=== PATIENT | female | born 1930 | race Caucasian/White ===

== ENCOUNTER 2016-12-15 12:44 | Emergency (ER) | payer OTHER ==
[~2016-12-15] VITALS: Ht 165.1 cm; Wt 88.6 kg
[~2016-12-15 12:44] MED LIST: AMLODIPINE BESY10 MG PO; ASPIRIN325 MG PO; ATIVAN0.5 MG PO; AUGMENTIN875 MG PO; CENTRUM SILVER1 EAC3 PO; CITALOPRAM HBR10 M1 PO; CITALOPRAM HBR10 MG PO; COLACE100 MG PO; DICYCLOMINE HCL10 MG PO; DUONEB 2.5-0.5 M3 ML AEROSOL; ENALAPRIL MALEA20 M1 NG; ENALAPRIL MALEA20 MG PO; FUROSEMIDE40 MG PO; GABAPENTIN100 MG PO; LEVSIN-SL0.125 MG SL; MESTINON180 MG PO; MESTINON60 MG PO; METAMUCIL; METAMUCIL PACKE1 PKT PO; METFORMIN HCL500 MG PO; MORPHINE CON20 MG/M1 SL; PERCOCET 5/31 TABLET PO; PYRIDOSTIGMINE60 MG PO; SIMVASTATIN20 M1 PO; SIMVASTATIN20 MG PO; VICODIN,LORT1 TABLET PO; VITAMIN B12-FO1 EACH PO; VITAMIN B6100 MG PO; VITAMIN D3400 UNIT PO; VITAMIN D50000 UNI2 PO
[2016-12-15 13:36] LABS: HEMATOCRIT 36.2 % (36.0-46.0); MCH 28.7 PG (29.0-34.0); MCHC 32.9 G/DL (30.0-36.0); MCV 87.2 FL (83-99); MEAN PLAT.VOLUME 10.4 uM^3 (9.5-12.4); PLATELET COUNT 246 K/uL (156-360); RBC DIS.WIDTH-CV 14.7 % (11.8-14.6); RBC DIS.WIDTH-SD 47.4 % (39-53); RED BLOOD COUNT 4.15 M/uL (3.80-5.20); WHITE BLOOD COUNT 9.7 K/uL (4.1-10.2)
[2016-12-15 13:44] LABS: CHLORIDE 106 mEq/L (99-109); POTASSIUM 4.8 mEq/L (3.7-5.4); SODIUM 140 mEq/L (136-147)
[2016-12-15 13:47] LABS: GLUCOSE 149 mg/dL (70-99)
[2016-12-15 13:48] LABS: ANION GAP 8 MEQ/L (2-14)
[2016-12-15 13:49] LABS: TOTAL BILIRUBIN 0.8 mg/dL (0.0-1.0)
[2016-12-15 13:50] LABS: ALKALINE PHOSPHATASE 151 IU/L (3-129); GFR ESTIMATE (CALCULATED) > 59 mL/min/
[2016-12-15 13:51] LABS: UREA NITROGEN (BUN) 15 mg/dL (9-23)
[2016-12-15 13:53] LABS: CREATINE KINASE 39 IU/L (1-294); TOTAL CK 39 IU/L (1-294)
[2016-12-15 13:56] LABS: TROP-I INTERPRETATION NEGATIVE; TROPONIN-I < 0.01 ng/mL (0.0-0.30)
[2016-12-15 13:59] LABS: CK-MB 1.2 ng/mL (0.0-4.9)
[2016-12-15 16:47] VITALS: BP 162/75
== END 2016-12-15 17:01 | disposition home or self-care (01) ==
LOC: EME 12:44
PROVIDERS: Emergency Medicine
DX: K80.20 Calculus of gallbladder without cholecystitis without obstruction (principal); I10 Essential (primary) hypertension; E78.5 Hyperlipidemia, unspecified; G70.00 Myasthenia gravis without (acute) exacerbation; Z79.82 Long term (current) use of aspirin
CPT/HCPCS: 71010; 76705; 80053; 82550; 82553; 84484; 85027; 93005; 99281; 99284; J1885; J2405

== ENCOUNTER 2017-05-23 12:50 | Inpatient (IN) | payer OTHER ==
[~2017-05-23] VITALS: Ht 162.6 cm; Wt 84.2 kg
[2017-05-23 13:34] LABS: BASOPHIL (%) 0.3 % (0-1); EOSINOPHIL (%) 1.5 % (0-5); EOSINOPHIL COUNT 0.2 K/uL (0-0.3); HEMATOCRIT 38.8 % (36.0-46.0); HEMOGLOBIN 12.6 G/DL (11.9-15.5); IMMATURE GRANULOCYTE (%) 0.2 % (0.0-0.7); LYMPHOCYTE (%) 31.2 % (15-42); LYMPHOCYTE COUNT 3.1 K/uL (1.0-2.8); MCH 27.8 PG (29.0-34.0); MCHC 32.5 G/DL (30.0-36.0); MCV 85.5 FL (83-99); MONOCYTE (%) 6.4 % (3-12); MONOCYTE COUNT 0.6 K/uL (0-0.8); NEUTROPHIL (%) 60.4 % (45-76); PLATELET COUNT 297 K/uL (156-360); RBC DIS.WIDTH-CV 15.9 % (11.8-14.6); RBC DIS.WIDTH-SD 49.5 % (39-53); RED BLOOD COUNT 4.54 M/uL (3.80-5.20); WHITE BLOOD COUNT 9.9 K/uL (4.1-10.2)
[2017-05-23 13:45] LABS: ALBUMIN 3.9 g/dL (3.2-4.8); CHLORIDE 107 mEq/L (99-109); POTASSIUM 4.9 mEq/L (3.7-5.4); SODIUM 144 mEq/L (136-147)
[2017-05-23 13:47] LABS: GLUCOSE 135 mg/dL (70-99)
[2017-05-23 13:48] LABS: TOTAL PROTEIN 7.9 g/dL (6.4-8.3)
[2017-05-23 13:49] LABS: TOTAL BILIRUBIN 0.5 mg/dL (0.0-1.0)
[2017-05-23 13:51] LABS: ALKALINE PHOSPHATASE 94 IU/L (3-129); GFR ESTIMATE (CALCULATED) 56 mL/min/
[2017-05-23 13:52] LABS: UREA NITROGEN (BUN) 17 mg/dL (9-23)
[2017-05-23 13:53] LABS: AST (GOT) 22 IU/L (2-34)
[2017-05-23 13:54] LABS: ALT (GPT) 17 IU/L (3-49)
[2017-05-23] MEDS ORDERED: FUROSEMIDE20 MG PO (17:19)
[2017-05-23] MEDS ORDERED: AMLODIPINE-BEN1 EACH PO (17:20)
[2017-05-23] MEDS ORDERED: MELATONIN5 M1 PO (17:21)
[2017-05-23] MEDS ORDERED: METAMUCIL0.4 GM PO (17:22)
[2017-05-23 19:10] LABS: APPEARANCE SL.HAZY ((CLEAR)); BILIRUBIN NEGATIVE; BLOOD SMALL; COLOR YELLOW ((YELLOW)); GLUCOSE (STRIP) NEGATIVE; KETONES NEGATIVE; LEUKOCYTES TRACE; NITRITE POSITIVE; PROTEIN (STRIP) NEGATIVE; SPECIFIC GRAVITY 1.012 (1.000-1.030); UROBILINOGEN 0.2 MG/DL (0.2-1.0)
[2017-05-23 19:17] LABS: BACTERIA 3+ /HPF; EPITHELIAL CELLS 1+ /HPF; HYALINE CASTS 0-5 /LPF; MUCUS TRACE /LPF; RED BLOOD CELLS 0-5 /HPF (0-5); UCUL ADDED? YES
[2017-05-24 12:20] VITALS: BP 178/80
[2017-05-24 14:29] VITALS: BP 142/78
[2017-05-24 17:00] VITALS: BP 162/70
[2017-05-24 19:35] VITALS: BP 147/70
[2017-05-24 23:32] VITALS: BP 145/79
[2017-05-25 03:40] VITALS: BP 143/94
[2017-05-25 07:00] VITALS: BP 143/68
[2017-05-25 12:08] VITALS: BP 150/72
[2017-05-25 15:00] VITALS: BP 148/66
[2017-05-25 19:52] VITALS: BP 166/70
[2017-05-25 23:51] VITALS: BP 166/72
[2017-05-26 08:18] VITALS: BP 140/68
[2017-05-26] MEDS ORDERED: MESTINON60 MG PO (08:22)
[2017-05-26] MEDS ORDERED: CEFTIN250 MG PO (08:22)
== END 2017-05-26 10:03 | disposition home or self-care (01) | DRG 57 ==
LOC: EME 12:50 → 2EAST 19:18 → EDOF 19:18 → ENRESERV 19:19 → 2EAST 05-24 12:12
PROVIDERS: Emergency Medicine; Hospitalist; Internal Medicine
DX: G70.01 Myasthenia gravis with (acute) exacerbation (principal); N30.00 Acute cystitis without hematuria; I10 Essential (primary) hypertension; E11.9 Type 2 diabetes mellitus without complications; E78.5 Hyperlipidemia, unspecified; E66.3 Overweight; M19.90 Unspecified osteoarthritis, unspecified site; Z68.31 Body mass index [BMI] 31.0-31.9, adult; R13.10 Dysphagia, unspecified; M43.6 Torticollis; Z66 Do not resuscitate; E87.70 Fluid overload, unspecified; K59.00 Constipation, unspecified; B96.20 Unspecified Escherichia coli [E. coli] as the cause of diseases classified elsewhere; I45.9 Conduction disorder, unspecified; K21.9 Gastro-esophageal reflux disease without esophagitis; Z90.710 Acquired absence of both cervix and uterus; Z79.82 Long term (current) use of aspirin; Z98.41 Cataract extraction status, right eye; Z98.42 Cataract extraction status, left eye
CPT/HCPCS: 71046; 80053; 81003; 82948; 85025; 87077; 87086; 87186; 93005; 99281; 99285; J0696; J1100; J1566; J1644; J1815; J7030

== ENCOUNTER 2017-06-10 22:30 | Inpatient (IN) | payer OTHER ==
[~2017-06-10] VITALS: Ht 167.6 cm; Wt 88.5 kg
[~2017-06-10 22:30] MED LIST changes: +AMLODIPINE-BEN1 EACH PO; +CEFTIN250 MG PO; +FUROSEMIDE20 MG PO; +MELATONIN5 M1 PO; +METAMUCIL0.4 GM PO
[2017-06-10 23:08] LABS: HEMATOCRIT 37.2 % (36.0-46.0); HEMOGLOBIN 12.2 G/DL (11.9-15.5); MCH 27.7 PG (29.0-34.0); MCHC 32.8 G/DL (30.0-36.0); MCV 84.5 FL (83-99); PLATELET COUNT 341 K/uL (156-360); RBC DIS.WIDTH-CV 15.7 % (11.8-14.6); WHITE BLOOD COUNT 9.6 K/uL (4.1-10.2)
[2017-06-10 23:21] LABS: ALBUMIN 3.6 g/dL (3.2-4.8); CHLORIDE 103 mEq/L (99-109); POTASSIUM 3.6 mEq/L (3.7-5.4); SODIUM 140 mEq/L (136-147)
[2017-06-10 23:24] LABS: GLUCOSE 161 mg/dL (70-99); TOTAL PROTEIN 7.6 g/dL (6.4-8.3)
[2017-06-10 23:26] LABS: TOTAL BILIRUBIN 0.3 mg/dL (0.0-1.0)
[2017-06-10 23:27] LABS: ALKALINE PHOSPHATASE 115 IU/L (3-129); CREATININE 0.8 mg/dL (0.6-1.3); GFR ESTIMATE (CALCULATED) > 59 mL/min/
[2017-06-10 23:28] LABS: UREA NITROGEN (BUN) 10 mg/dL (9-23)
[2017-06-10 23:29] LABS: AST (GOT) 32 IU/L (2-34)
[2017-06-10 23:30] LABS: ALT (GPT) 22 IU/L (3-49)
[2017-06-10 23:31] LABS: LIPASE 13 U/L (1.0-51.0)
[2017-06-11 00:40] LABS: APPEARANCE SL.HAZY ((CLEAR)); BILIRUBIN NEGATIVE; BLOOD SMALL; COLOR YELLOW ((YELLOW)); GLUCOSE (STRIP) NEGATIVE; KETONES NEGATIVE; LEUKOCYTES NEGATIVE; NITRITE NEGATIVE; PROTEIN (STRIP) NEGATIVE; SPECIFIC GRAVITY 1.019 (1.000-1.030); UROBILINOGEN 0.2 MG/DL (0.2-1.0)
[2017-06-11 01:00] LABS: BACTERIA NONE SEEN /HPF; CALCIUM OXALATE CRYSTALS 1+ /HPF; EPITHELIAL CELLS 1+ /HPF; HYALINE CASTS 20-30 /LPF; MUCUS 1+ /LPF; UCUL ADDED? YES
[2017-06-11] MEDS ORDERED: MESTINON60 MG PO (04:05)
[2017-06-11 10:41] VITALS: BP 148/68
[2017-06-11] MEDS ORDERED: CYANOCOBALAM1000 MCG PO (11:08)
[2017-06-11 16:30] VITALS: BP 149/68
[2017-06-11 19:54] VITALS: BP 145/67
[2017-06-12] VITALS (7 sets, daily range): BP systolic 135–194; BP diastolic 64–82
[2017-06-12 06:24] LABS: HEMATOCRIT 35.4 % (36.0-46.0); HEMOGLOBIN 11.1 G/DL (11.9-15.5); MCHC 31.4 G/DL (30.0-36.0); MCV 86.1 FL (83-99); PLATELET COUNT 327 K/uL (156-360); RBC DIS.WIDTH-CV 15.9 % (11.8-14.6); RBC DIS.WIDTH-SD 50.1 % (39-53); RED BLOOD COUNT 4.11 M/uL (3.80-5.20); WHITE BLOOD COUNT 8.6 K/uL (4.1-10.2)
[2017-06-12 06:47] LABS: ALBUMIN 3.2 G/DL (3.2-4.8); ALKALINE PHOSPHATASE 92 IU/L (3-129); ALT (GPT) 34 IU/L (3-49); AST (GOT) 46 IU/L (2-34); CHLORIDE 106 MEQ/L (99-109); CREATININE 0.7 MG/DL (0.6-1.3); GFR ESTIMATE (CALCULATED) > 59 mL/min/; GLUCOSE 124 mg/dL (70-99); POTASSIUM 4.2 MEQ/L (3.7-5.4); SODIUM 142 MEQ/L (136-147); TOTAL BILIRUBIN 0.6 MG/DL (0.0-1.0); TOTAL PROTEIN 6.5 G/DL (6.4-8.3); UREA NITROGEN (BUN) 7 mg/dL (9-23)
[2017-06-13] VITALS (7 sets, daily range): BP systolic 150–195; BP diastolic 67–84
[2017-06-13 06:08] LABS: BASOPHIL (%) 1.1 % (0-1); BASOPHIL COUNT 0.1 K/uL (0-0.1); EOSINOPHIL (%) 5.8 % (0-5); EOSINOPHIL COUNT 0.4 K/uL (0-0.3); HEMATOCRIT 36.5 % (36.0-46.0); HEMOGLOBIN 11.4 G/DL (11.9-15.5); IMMATURE GRANULOCYTE (%) 0.2 % (0.0-0.7); LYMPHOCYTE (%) 38.6 % (15-42); LYMPHOCYTE COUNT 2.5 K/uL (1.0-2.8); MCH 26.7 PG (29.0-34.0); MCHC 31.2 G/DL (30.0-36.0); MCV 85.5 FL (83-99); MONOCYTE (%) 7.3 % (3-12); MONOCYTE COUNT 0.5 K/uL (0-0.8); NEUTROPHIL COUNT 3.1 K/uL (1.8-6.4); PLATELET COUNT 328 K/uL (156-360); RBC DIS.WIDTH-CV 15.7 % (11.8-14.6); RED BLOOD COUNT 4.27 M/uL (3.80-5.20); WHITE BLOOD COUNT 6.6 K/uL (4.1-10.2)
[2017-06-13 06:34] LABS: ALBUMIN 3.2 G/DL (3.2-4.8); ALKALINE PHOSPHATASE 90 IU/L (3-129); ALT (GPT) 44 IU/L (3-49); AST (GOT) 50 IU/L (2-34); CHLORIDE 109 MEQ/L (99-109); CREATININE 0.6 MG/DL (0.6-1.3); DIRECT BILIRUBIN 0.2 mg/dL (0.0-0.3); GFR ESTIMATE (CALCULATED) > 59 mL/min/; GLUCOSE 131 mg/dL (70-99); POTASSIUM 3.4 MEQ/L (3.7-5.4); SODIUM 144 MEQ/L (136-147); TOTAL BILIRUBIN 0.6 MG/DL (0.0-1.0); TOTAL PROTEIN 6.2 G/DL (6.4-8.3); UREA NITROGEN (BUN) 4 mg/dL (9-23)
[2017-06-13] MEDS ORDERED: ONDANSETRON HCL8 MG PO (15:43)
[2017-06-13] MEDS ORDERED: DILAUDID4 MG PO (15:43)
[2017-06-13] MEDS ORDERED: COLACE100 MG PO (15:43)
[2017-06-13 22:03] LABS: BASE EXCESS 1.8 mEq/L (-3 to +3); BICARBONATE 25.7 mEq/L (22-26); CARBOXY HGB 1.3 % (0-5); METHEMOGLOBIN 1.4 % (0-1.5); PO2 206 mm Hg (80-100); pH 7.45 (7.35-7.45)
[2017-06-13 22:04] LABS: COMMENTS - BLOOD GASES A+C+; CONTINUOUS POS AIRWAY PRESSURE 5 cm H2O; DEVICE VENT; FI02 50 %; MODE SPON:TC; PCO2 37 mm Hg (35-45); SITE LR; TOTAL RESP RATE 22 resp/min
[2017-06-14] VITALS (18 sets, daily range): BP systolic 133–171; BP diastolic 63–85
[2017-06-14 06:00] LABS: BASOPHIL (%) 0.5 % (0-1); BASOPHIL COUNT 0.1 K/uL (0-0.1); EOSINOPHIL (%) 0.8 % (0-5); EOSINOPHIL COUNT 0.1 K/uL (0-0.3); HEMATOCRIT 32.8 % (36.0-46.0); HEMOGLOBIN 10.6 G/DL (11.9-15.5); IMMATURE GRANULOCYTE (%) 0.3 % (0.0-0.7); LYMPHOCYTE (%) 18.9 % (15-42); MCH 27.5 PG (29.0-34.0); MCHC 32.3 G/DL (30.0-36.0); MCV 85.2 FL (83-99); MONOCYTE (%) 6.3 % (3-12); MONOCYTE COUNT 0.7 K/uL (0-0.8); NEUTROPHIL (%) 73.2 % (45-76); NEUTROPHIL COUNT 7.7 K/uL (1.8-6.4); PLATELET COUNT 305 K/uL (156-360); RBC DIS.WIDTH-CV 15.7 % (11.8-14.6); RBC DIS.WIDTH-SD 48.5 % (39-53); RED BLOOD COUNT 3.85 M/uL (3.80-5.20); WHITE BLOOD COUNT 10.5 K/uL (4.1-10.2)
[2017-06-14 06:10] LABS: ALBUMIN 3.1 G/DL (3.2-4.8); ALKALINE PHOSPHATASE 81 IU/L (3-129); ALT (GPT) 55 IU/L (3-49); AST (GOT) 63 IU/L (2-34); CHLORIDE 105 MEQ/L (99-109); CREATININE 0.7 MG/DL (0.6-1.3); GFR ESTIMATE (CALCULATED) > 59 mL/min/; GLUCOSE 133 mg/dL (70-99); MAGNESIUM 1.8 mg/dl (1.3-2.7); POTASSIUM 3.8 MEQ/L (3.7-5.4); SODIUM 145 MEQ/L (136-147); TOTAL BILIRUBIN 0.5 MG/DL (0.0-1.0); UREA NITROGEN (BUN) 6 mg/dL (9-23)
[2017-06-15 05:40] VITALS: BP 152/65
[2017-06-15 08:37] VITALS: BP 169/74
[2017-06-15] MEDS ORDERED: HYDRALAZINE HCL25 MG PO (10:38)
== END 2017-06-15 14:47 | disposition home health service (06) | DRG 417 ==
LOC: EME → EDBD 22:30 → EME 22:30 → 4EAST 06-11 08:24 → 3EAST 06-11 08:24 → EDOF 06-11 08:24 → 4WEST 06-11 08:24 → ENRESERV 06-11 08:25 → EDOF 06-11 08:32 → ENRESERV 06-11 09:09 → 3EAST 06-11 10:15 → ENRESERV 06-12 13:24 → 4EAST 06-12 16:19 → ENRESERV 06-13 18:23 → 4WEST 06-13 21:10 → ENRESERV 06-14 16:30 → 5EAST 06-14 18:09 → ENPENDDIS 06-15 → 5EAST 06-15 14:47
PROVIDERS: Internal Medicine; Internal Medicine Critical Care Medicine; Obstetrics & Gynecology; Physician Assistant
PROC: 0BH17EZ Insertion of Endotracheal Airway into Trachea, Via Natural or Artificial Opening (ICD-10-PCS; principal; 2017-06-13)
PROC: 5A1935Z Respiratory Ventilation, Less than 24 Consecutive Hours (ICD-10-PCS; principal; 2017-06-13)
PROC: 0FT44ZZ Resection of Gallbladder, Percutaneous Endoscopic Approach (ICD-10-PCS; principal; 2017-06-13)
DX: K80.44 Calculus of bile duct with chronic cholecystitis without obstruction (principal); J95.821 Acute postprocedural respiratory failure; G70.00 Myasthenia gravis without (acute) exacerbation; J90 Pleural effusion, not elsewhere classified; K57.92 Diverticulitis of intestine, part unspecified, without perforation or abscess without bleeding; I10 Essential (primary) hypertension; E78.5 Hyperlipidemia, unspecified; E11.9 Type 2 diabetes mellitus without complications; G62.9 Polyneuropathy, unspecified; Z66 Do not resuscitate; K21.9 Gastro-esophageal reflux disease without esophagitis; K66.0 Peritoneal adhesions (postprocedural) (postinfection); K76.0 Fatty (change of) liver, not elsewhere classified; Z98.41 Cataract extraction status, right eye; Z68.29 Body mass index [BMI] 29.0-29.9, adult; Z79.82 Long term (current) use of aspirin; Z90.710 Acquired absence of both cervix and uterus; Z98.42 Cataract extraction status, left eye; Z82.49 Family history of ischemic heart disease and other diseases of the circulatory system
CPT/HCPCS: 36600; 71045; 71046; 74176; 76705; 80048; 80053; 80076; 81003; 82803; 82948; 83605; 83690; 83735; 84238 90; 85025; 85027; 87040; 87070; 87086; 87205; 87641; 88304; 93005; 93306; 94002; 94003; 94640; 94640 76; 94760; 94799; 99202; 99281; 99285; C1753; J0295; J0360; J0690; J1170; J1644; J1650; J1815; J2250; J2270; J2310; J2405; J2543; J2704; J2710; J2765; J3010; J7042; J7050; S0020; S0028

== ENCOUNTER 2017-08-31 19:26 | Emergency (ER) | payer OTHER ==
[~2017-08-31] VITALS: Ht 165.1 cm; Wt 84.1 kg
[~2017-08-31 19:26] MED LIST changes: +CYANOCOBALAM1000 MCG PO; +DILAUDID4 MG PO; +HYDRALAZINE HCL25 MG PO; +ONDANSETRON HCL8 MG PO
[2017-08-31 21:08] LABS: HEMATOCRIT 34.8 % (36.0-46.0); HEMOGLOBIN 11.1 G/DL (11.9-15.5); MCH 26.2 PG (29.0-34.0); MCHC 31.9 G/DL (30.0-36.0); MCV 82.3 FL (83-99); PLATELET COUNT 243 K/uL (156-360); RBC DIS.WIDTH-CV 16.1 % (11.8-14.6); RBC DIS.WIDTH-SD 48.3 % (39-53); RED BLOOD COUNT 4.23 M/uL (3.80-5.20); WHITE BLOOD COUNT 8.7 K/uL (4.1-10.2)
[2017-08-31 21:32] LABS: ALBUMIN 3.7 g/dL (3.2-4.8); CHLORIDE 104 mEq/L (99-109); POTASSIUM 3.7 mEq/L (3.7-5.4); SODIUM 140 mEq/L (136-147)
[2017-08-31 21:34] LABS: GLUCOSE 141 mg/dL (70-99)
[2017-08-31 21:35] LABS: TOTAL PROTEIN 7.7 g/dL (6.4-8.3)
[2017-08-31 21:36] LABS: TOTAL BILIRUBIN 0.4 mg/dL (0.0-1.0)
[2017-08-31 21:38] LABS: ALKALINE PHOSPHATASE 88 IU/L (3-129); GFR ESTIMATE (CALCULATED) 56 mL/min/
[2017-08-31 21:39] LABS: UREA NITROGEN (BUN) 14 mg/dL (9-23)
[2017-08-31 21:40] LABS: AST (GOT) 29 IU/L (2-34); DIRECT BILIRUBIN 0.2 mg/dL (0.0-0.3)
[2017-08-31 21:41] LABS: ALT (GPT) 16 IU/L (3-49); LIPASE 10 U/L (1.0-51.0)
[2017-08-31 22:17] LABS: APPEARANCE SL.HAZY ((CLEAR)); BILIRUBIN NEGATIVE; BLOOD NEGATIVE; COLOR YELLOW ((YELLOW)); GLUCOSE (STRIP) NEGATIVE; KETONES NEGATIVE; LEUKOCYTES NEGATIVE; NITRITE POSITIVE; PROTEIN (STRIP) 100; SPECIFIC GRAVITY 1.026 (1.000-1.030); UROBILINOGEN 0.2 MG/DL (0.2-1.0)
[2017-08-31 22:25] LABS: BACTERIA RARE /HPF; EPITHELIAL CELLS 1+ /HPF; MUCUS 1+ /LPF; RED BLOOD CELLS 0-5 /HPF (0-5); UCUL ADDED? YES
[2017-09-01] MEDS ORDERED: KEFLEX500 MG PO (00:23)
[2017-09-01] MEDS ORDERED: TAMIFLU75 MG PO (00:23)
[2017-09-01 00:38] VITALS: BP 138/60
== END 2017-09-01 00:44 | disposition home or self-care (01) ==
LOC: EME 19:26
PROVIDERS: Emergency Medicine
DX: N39.0 Urinary tract infection, site not specified (principal); J10.1 Influenza due to other identified influenza virus with other respiratory manifestations; R55 Syncope and collapse; R19.7 Diarrhea, unspecified; G70.00 Myasthenia gravis without (acute) exacerbation; I10 Essential (primary) hypertension; Z79.82 Long term (current) use of aspirin
CPT/HCPCS: 71045; 80048; 80076; 81003; 83690; 85027; 87077; 87086; 87186; 87502; 99281; 99285; J2405; J7030